=== PATIENT | female | born 1960 | race Caucasian/White ===

== ENCOUNTER → 2016-05-12 | Outpatient (CLI) | payer OTHER ==
--- NOTE | 2016-05-12 13:49 | MA ---
Screening Digital Mammogram With iCAD Analysis Clinical Indications: Routine screening. Technique: Standard cephalocaudal projections are obtained. Digital breast tomosynthesis was performe d in the MLO projection with reconstruction at 1.0 mm slice thickness and composite MLO views reconst ructed. This examination is processed by the iCAD computer aided detection system. Comparison: August 2013, March 2012, January 2011, November 2009, May 2007. Breast density: Type C: Heterogeneously dense. Findings: CAD was reviewed. No masses, suspicious calcifications or secondary signs of malignancy are seen. There has been no significant change in the appearance of either breast. Impression: Negative mammogram. BI-RADS 1. Recommendation: Routine mammographic screening in one year as long as physical examination is negativ e in this patient with heterogeneously dense breast parenchyma. [facility] will send a result letter to the patient. Negative mammography should not preclude additional workup of a clinically suspicious finding. The patient's information is entered into a reminder system with a target due date for her next mammo gram.
== END ==
LOC: FIMAGING 09:41
DX: Z12.31 Encounter for screening mammogram for malignant neoplasm of breast (principal)
CPT/HCPCS: G0202

== ENCOUNTER 2017-03-08 06:50 | Observation (INO) | payer OTHER ==
[2017-03-08] MEDS ORDERED: NS 1,000 ML IV ONE (07:09)
--- NOTE | 2017-03-08 07:37 | CPEKG ---
Heart Rate: 53 RR Interval: 1132 P-R Interval: 136 QRSD Interval: 82 QT Interval: 436 QTC Interval: 410 P Martin: 48 QRS Martin: 28 T Wave Martin: 19 EKG Severity - NORMAL ECG - EKG Impression: SINUS RHYTHM Electronically Signed By: Buzz Winchester 08-Mar-2017 11:10:19
[2017-03-08] MEDS ORDERED: LIDOCAINE 1% 300 MG/30 ML SDV ONE (07:39)
[2017-03-08] MEDS ORDERED: BUPIVACAINE 0.5% 30 ML SDV ONE (07:39)
[2017-03-08] MEDS ORDERED: HEPARIN 10,000 UNIT/10 ML MDV ONE (07:39)
[2017-03-08] MEDS ORDERED: ISOPROTERENOL HCL/D5W 0.2 MG/50 ML BAG IV ONE (07:40)
[2017-03-08 07:51] LABS: % IMMATURE GRANULYOCYTES 0.2 % (0.0-1.1); ABSOLUTE IMMATURE GRANULOCYTES 0.01 10^3/uL (0.00-0.10); ADD DIFF? NO; ADD MORPH? NO; ADD SCAN? NO; ATYPICAL LYMPHOCYTE FLAG 0 (0-99); FRAGMENT RBC FLAG 0 (0-99); HEMATOCRIT 39.2 % (38.0-47.0); HEMOGLOBIN 13.7 g/dL (12.6-16.3); LEFT SHIFT FLG 0 (0-99); LIPEMIA HEMOLYSIS FLAG 90 (0-99); MEAN CELL HEMOGLOBIN 30.9 pg (27.9-34.1); MEAN CELL HEMOGLOBIN CONCENTR. 34.9 g/dL (32.4-36.7); MEAN CELL VOLUME 88.5 fL (81.5-99.8); MEAN PLATELET VOLUME 9.9 fL (8.7-11.7); PLATELET CLUMPS FLAG 0 (0-99); PLATELET COUNT 198 10^3/uL (150-400); RED BLOOD CELL COUNT 4.43 10^6/uL (4.18-5.33); RED CELL DISTRIBUTION WIDTH 13.3 % (11.5-15.2)
[2017-03-08 08:02] LABS: ANION GAP 9 mEq/L (8-16); CALCIUM 9.2 mg/dL (8.5-10.4); CARBON DIOXIDE 27 mEq/l (22-31); CHLORIDE 105 mEq/L (97-110); CREATININE 0.7 mg/dL (0.6-1.0); GLOMERULAR FILTRATION RATE > 60; GLUCOSE 79 mg/dL (70-100); MAGNESIUM 2.2 mg/dL (1.6-2.3); POTASSIUM 3.7 mEq/L (3.5-5.2); SODIUM 141 mEq/L (134-144)
[2017-03-08 08:03] LABS: INR 0.94 (0.83-1.16); PROTIME(PATIENT) 12.5 SEC (12.0-15.0)
[2017-03-08 08:04] LABS: APTT 29.2 SEC (23.0-38.0)
--- NOTE | 2017-03-08 09:06 | PDGENHP ---
History & Physical Chief Complaint: svt History of Present Illness: SVT Relevant Physical Exam: S1S2 RRR. CTA. AO X 3 Cardiorespiratory Assessment: SVT, long RP tachycardia, for ablation
--- NOTE | 2017-03-08 09:17 | PDANEPAE ---
ANE History of Present Illness svt ANE Past Medical History - Pulmonary History Hx Oxygen in Use at Home: No Hx Sleep Apnea: No ANE Review of Systems Review of Systems: - Systems Immunologic/Allergy: Reports: food allergy ANE Patient History - Allergies Allergies/Adverse Reactions: CATS Allergy (Severe, Uncoded 06/16/10 18:22) EYES SWELL GLUTEN Allergy (Severe, Uncoded 06/16/10 18:22) ASTHMA, CELIAC SYMPTOMS OATS, WHEAT Allergy (Severe, Uncoded 06/16/10 18:22) ASTHMA, CELIAC SYMPTOMS - Home Medications Home Medications: Fluticasone Nasal [Flonase Nasal [place] (RX)] 1 sprays NASAL DAILY 03/01/17 [ Last Taken 03/07/17 08:00] Fluticasone/Salmeter 250/50Mcg [Advair 250/50 (*)] 1 puffs IH DAILY 03/01/17 [ Last Taken 03/07/17 08:00] Herbals/Supplements -Info Only 1 ea PO DAILY 03/01/17 [Last Taken 03/07/17 08:00 ] Levothyroxine [Synthroid 112 mcg (*)] 112 mcg PO DAILY06 03/01/17 [Last Taken 08:00] Multivitamins [Multivitamin (*)] 1 each PO DAILY 03/01/17 [Last Taken 03/07/17 08:00] azaTHIOprine [Imuran 50 mg (*)] 50 mg PO HS 03/01/17 [Last Taken 03/06/17 21:00] - Smoking Hx Smoking Status: Never smoked ANE Labs/Vital Signs - Labs Result Diagrams: 03/08/17 07:30 03/08/17 07:30 - Vital Signs Height: 165 cm Weight: 59 kg ANE Physical Exam - Airway Neck exam: FROM Mallampati Score: Class 1 Mouth exam: normal dental/mouth exam - Pulmonary Pulmonary: no respiratory distress - Cardiovascular Cardiovascular: regular rate and rhythym - ASA Status ASA Status: II ANE Anesthesia Plan Anesthesia Plan: general endotracheal anesthesia
[2017-03-08] MEDS ORDERED: PROPOFOL 200 MG/20 ML VIAL ONE ×2 (09:20→10:41)
[2017-03-08] MEDS ORDERED: ROCURONIUM 50 MG/5 ML VIAL ONE (09:20)
[2017-03-08] MEDS ORDERED: fentaNYL 100 MCG/2 ML INJ ONE ×3 (09:20→10:41)
[2017-03-08] MEDS ORDERED: DESFLURANE 240 ML BOTTLE IH ONE (09:31)
[2017-03-08 09:37] LABS: ALBUMIN 4.1 g/dL (3.5-5.0); BILIRUBIN,TOTAL 0.7 mg/dL (0.1-1.4); BILIRUBIN-CONJUGATED 0.2 mg/dL (0.0-0.5); BILIRUBIN-UNCONJUGATED 0.5 mg/dL (0.0-1.1); TOTAL PROTEIN 6.9 g/dL (6.3-8.2)
[2017-03-08] MEDS ORDERED: PROMETHAZINE HCL 25 MG/ML INJ IVP PRN (11:06)
[2017-03-08] MEDS ORDERED: fentaNYL 100 MCG/2 ML INJ IVP PRN (11:06)
[2017-03-08] MEDS ORDERED: NALOXONE HCL 0.4 MG/ML INJ IVP PRN (11:06)
[2017-03-08] MEDS ORDERED: ONDANSETRON 4 MG/2 ML VIAL IVP PRN ×2 (11:06→11:20)
[2017-03-08] MEDS ORDERED: HYDROmorphONE/DILAUDID 1 MG/ML INJ IVP PRN (11:06)
[2017-03-08] MEDS ORDERED: ACETAMINOPHEN 325 MG TAB PO PRN (11:20)
[2017-03-08] MEDS ORDERED: OXYCODONE/APAP 5/325 TAB PO PRN (11:20)
--- NOTE | 2017-03-08 11:20 | EPPROC ---
Electrophysiology Procedure Note: ELECTROPHYSIOLOGIC STUDY AND CATHETER MEDIATED ABLATION OF SLOW/FAST AV SANTY REENTRY TACHYCARDIA PROCEDURES PERFORMED: 93126-76 EP evaluation with RA/RV/LA pace/record, with arrhythmia induction 91391-92 EP evaluation with RA/RV pace record, insert/reposition catheter, with arrhythmia induction 68239 Intracardiac catheter ablation, SVT arrhythmogenic focus 50593 3D mapping Fluoroscopy INDICATION: SVT PROCEDURE: Catheters & Anesthesia: The patient arrived in the Electrophysiology Laboratory in the fasting state. The right clavicular region, right groin, and left groin area were prepped and draped in the usual sterile manner. Anesthesiologist Dr. Adria Medellin administered general anesthesia. Appropriate non-invasive blood pressure, pulse oximetry and end-tidal CO2 monitoring was established. All catheters were placed percutaneously using the modified Seldinger technique , and advanced into position under fluoroscopic guidance. One #6 Libyan hexapolar non-deflectable electrode catheter was inserted into the right atrial appendage via the left femoral vein (2mm spacing; except the proximal ring which was 25cm from the tip used for unipolar recordings). One #7 Libyan deflectable octapolar electrode catheter was advanced to the His-bundle position via the left femoral vein (2mm spacing). One #7 Libyan deflectable quadrapolar catheter was advanced to the anteroseptal right ventricle via the right femoral vein. One #7 Libyan deflectable catheter with 10 pairs of electrodes was placed via the right femoral vein into the coronary sinus. Heparin was given to keep ACT > 200 s. Programmed stimulation was performed from the right atrium, right ventricle and coronary sinus (left atrium). Parahisian pacing demonstrated constant H-A interval with changing V-A intervals and stimulus-A intervals during capture and loss of capture of proximal RBB proving retrograde conduction over AV node. AVNRT was induced easily during infusion of isoproterenol 1 mcg/min. Ventricular extrastimuli delivered during tachycardia without altering antegrade His bundle activation did not advance next atrial potential, indicating that the tachycardia was not utilizing an accessory pathway for retrograde conduction. VA interval was 20 ms. Post entrainment of the tachycardia from the ventricle, there was VAHV response. Mapping of the right atrium and coronary sinus during AVNRT identified earliest atrial activation above the tendon of Albert at a level slightly posterior to the level of the His bundle, consistent with retrograde conduction over the fast AV santy pathway. A #8 Libyan deflectable quadrapolar electrode catheter (2mm-5mm-2mm spacing) with 4 mm tip electrode and sensor for the 3D mapping Carto system was advanced to the right atrium. 3 D mapping of the inter-atrial septum and coronary sinus was performed and location of the AV node was marked. A SL2 sheath was used. RF applications were delivered to the region between the tricuspid annulus and the coronary sinus ostium, at the level of the upper edge of the coronary sinus ostium. Junctional rhythm occurred during all of the RF applications. Programmed stimulation was continued post ablation at baseline and during graded doses of isoproterenol upto 2mcg/min. Sustained AVNRT was not inducible. There were no echo beats. The catheters were removed. The long sheath was changed to a short 9 Fr sheath. The patient was transferred to the cardiovascular holding area in stable condition. Vascular access sheaths were removed in the holding area. There were no apparent complications. Results: A. Spontaneous Intervals: Pre ablation SCL 1100 ms AH 100 ms HV 40 ms Post ablation SCL 725 ms AH 55 ms HV 40 ms B. Antegrade AV santy function (decremental pacing) Pre ablation FPERP 610 ms SPERP 540 ms WBB CL 530 ms Post ablation FPERP 400 ms WBB CL 390 ms C. Retrograde AV santy function (decremental pacing) Pre ablation FPERP 550 ms WBB CL 540 ms D. Arrhythmias: Sustained slow/fast AVNRT Cycle length 370 ms, AH interval 320 ms, RAMAN interval 50 ms VA interval 20 ms CONCLUSIONS 1. 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 ( Slow/fast AVNRT). 2. Successful ablation of the slow AV santy pathway with elimination of 1:1 antegrade conduction over the slow AV santy pathway, all retrograde conduction over the slow AV santy pathway and the inducibility of AVNRT. 3. No complications. Patient Problems: Problems Problem Status Onset SVT (supraventricular tachycardia) Acute
--- NOTE | 2017-03-08 11:37 | POSTANESTH ---
Post Anesthetic Evaluation Cardiovascular Status: Normal, Stable Respiratory Status: Normal, Stable Level of Consciousness/Mental Status: Can Participate in Eval Pain Control: Adequate, Prn Tx Ordered Nausea/Vomiting Control: Adequate, Prn Tx Ordered Complications Possibly Related to Anesthesia: None Noted
[2017-03-08] MEDS ORDERED: ATROPINE SULFATE 1 MG/10 ML SYR ONE (11:43)
--- NOTE | 2017-03-08 12:25 | CPEKG ---
Heart Rate: 60 RR Interval: 1000 P-R Interval: 152 QRSD Interval: 86 QT Interval: 432 QTC Interval: 432 P [place]: 70 QRS [place]: 14 T Wave [place]: 22 EKG Severity - NORMAL ECG - EKG Impression: SINUS RHYTHM Electronically Signed By: Raza Juan 08-Mar-2017 15:48:52
[2017-03-08] MEDS ORDERED: FLU VACC QS 2017-18 (3YR+)/PF 0.5 ML SYR (FLUARIX QUAD) IM ONE (17:00)
[2017-03-08] MEDS ORDERED: PNEUMOCOCCAL 0.5ML VACCINE VIAL IM ONE (17:12)
[2017-03-08] MEDS: ENOXAPARIN 30 MG/0.3 ML SYR SC SCH (19:00)
[2017-03-08] MEDS ORDERED: azaTHIOprine 50 MG TAB PO SCH (21:00)
[2017-03-09 03:42] VITALS: O2SAT 94
[2017-03-09 05:24] LABS: % IMMATURE GRANULYOCYTES 0.3 % (0.0-1.1); ABSOLUTE IMMATURE GRANULOCYTES 0.02 10^3/uL (0.00-0.10); ADD DIFF? NO; ADD MORPH? NO; ADD SCAN? NO; ATYPICAL LYMPHOCYTE FLAG 0 (0-99); FRAGMENT RBC FLAG 0 (0-99); HEMATOCRIT 36.4 % (38.0-47.0); LEFT SHIFT FLG 0 (0-99); LIPEMIA HEMOLYSIS FLAG 80 (0-99); MEAN PLATELET VOLUME 10.5 fL (8.7-11.7); PLATELET CLUMPS FLAG 0 (0-99); PLATELET COUNT 162 10^3/uL (150-400); RED CELL DISTRIBUTION WIDTH 13.6 % (11.5-15.2)
[2017-03-09 05:33] LABS: INR 1.06 (0.83-1.16); PROTIME(PATIENT) 13.7 SEC (12.0-15.0)
[2017-03-09] MEDS ORDERED: LEVOTHYROXINE 112 MCG TAB PO SCH (06:00)
[2017-03-09 06:07] LABS: ANION GAP 9 mEq/L (8-16); CALCIUM 8.7 mg/dL (8.5-10.4); CARBON DIOXIDE 26 mEq/l (22-31); CHLORIDE 106 mEq/L (97-110); CREATININE 0.8 mg/dL (0.6-1.0); GLOMERULAR FILTRATION RATE > 60; GLUCOSE 74 mg/dL (70-100); SODIUM 141 mEq/L (134-144)
[2017-03-09 06:15] LABS: CREATINE KINASE-MB FRACTION 0.42 ng/mL (0.00-3.19)
[2017-03-09 07:08] VITALS: BP 109/61; PULSE 57; RESP 16; TEMP 98.3
[2017-03-09] MEDS: ENOXAPARIN 30 MG/0.3 ML SYR SC SCH (08:21)
--- NOTE | 2017-03-09 08:56 | CPEKG ---
Heart Rate: 60 RR Interval: 1000 P-R Interval: 136 QRSD Interval: 80 QT Interval: 396 QTC Interval: 396 P [place]: 56 QRS [place]: 46 T Wave [place]: 32 EKG Severity - NORMAL ECG - EKG Impression: SINUS RHYTHM Electronically Signed By: Raza Juan 09-Mar-2017 15:39:19
[2017-03-09] MEDS ORDERED: MULTIVITAMINS 1 EACH TAB PO SCH (09:00)
[2017-03-09] MEDS ORDERED: FLUTICASONE/SALMETER 250/50MCG DISKUS IH SCH (09:00)
[2017-03-09] MEDS ORDERED: FLUTICASONE NASAL 120 SPRAYS/16 GM MDI EACHNARE SCH (09:00)
--- NOTE | 2017-03-09 11:02 | ECHO ---
[email or web address] [address] [address] Main: [phone] Fax: Transthoracic Echocardiogram Name: MARIZA ARRIOLA MR#: [id number] Study Date: 03/09/2017 Study Time: 09:07 AM Date of : 1960 Age: 56 year(s) Height: 165.1 cm (65 in.) Weight: 58.97 kg (130 lb.) BSA: 1.65 m2 Gender: Female Examination: Echo Indication: F/U post EP study Image Quality: Contrast: Requested by: Buzz Winchester BP: 109 mmHg/61 mmHg Heart Rate: Rhythm: Indication: F/U post EP study Procedure Staff Associate Application Developer: Larisa Moulton Physician: Rodriguez Lee Requesting Provider: Conclusions: Normal study Measurements: Chambers Valvular Assessment AV/MV Valvular Assessment TV/PV Normal Normal Normal Name Value Range Name Value Range Name Value Range IVSd (2D): 0.8 cm (0.6 cm-1.1 AV meanP mmHg ( - ) TR Vmax: 2.05 mm/s ( - ) cm) MV E Vmax: 0.74 m/s ( - ) TR PGmax: 17 mmHg ( - ) LVDd (2D): 4.2 cm (3.9 cm-5.3 MV A Vmax: 0.31 m/s ( - ) syst. PAP: 22 mmHg ( - ) cm) MV E/A: 2.39 ( - ) LVDs (2D): 2.5 cm (2.1 cm-4 cm) LVPWd (2D): 0.8 cm ( - ) EF Range: 65-70 % Continued Measurements: Chambers Valvular Assessment AV/MV Valvular Assessment TV/PV Name Value Name Value Name Value LADs: 3.4 cm MV E' Septal: 0.10 m/s CVP (est.): 5 mmHg LADs Lon.2 cm MV E/E' Septal: 7.50 LA Area: 12.6 cm2 MV E/E' Lateral: 6.30 Findings: Left Ventricle: Normal size left ventricle. No LV hypertrophy. Normal global systolic LV function. The ejection fraction is estimated to be 65-70 %. No regional wall motion abnormality. Right Ventricle: Normal size right ventricle. Patient: MARIZA ARRIOLA Study Date: 03/09/2017 Page 1 of 2 09:07 AM Left Atrium: The left atrium is normal in size. Right Atrium: The right atrium is borderline dilated. Mitral Valve: The mitral valve is normal in appearance and function. Trivial mitral valve regurgitation. Aortic Valve: The aortic valve is normal in appearance and function. Tricuspid Valve: The tricuspid valve is normal in appearance and function. Mild tricuspid regurgitation is present. The pulmonary artery pressure is normal. Pulmonic Valve: The pulmonic valve is normal in appearance and function. Trivial pulmonic valve regurgitation. Aorta: The aorta is normal. Pericardium: No pericardial effusion. (No Signature Object) Patient: MARIZA ARRIOLA Study Date: 03/09/2017 Page 2 of 2 09:07 AM D:_[id number]
--- NOTE | 2017-03-09 12:02 | ASDISCHSUM ---
Discharge Information Plan Status:Home with No Needs Medically Cleared to Leave:03/08/2017 Discharge Date:03/09/2017 10:52 AM CM D/C Disposition:Home, Routine, Self-Care ADT D/C Disposition:Home, Routine, Self-Care Projected Discharge Date:03/09/2017 10:52 AM Transportation at D/C:Family Discharge Delay Reason: Follow-Up Date:03/09/2017 10:52 AM Discharge Slot: Final Diagnosis: Placement Information Patient Contact Information Contact Name:CHEKO Relationship:Other Address:[address] [place] [address] City:[facility] Phone: [facility]/Zip Code:[place] [address] Email: Financial Information Financial Class:[facility] Primary Plan Desc:[employer] OPEN ACC LOCAL Primary Plan Number:[id number] Secondary Plan Desc: Secondary Plan Number: Assessment Information LACE LACE Length of stay for Answers: 1 day current admission Acuity / Level of Care Answers: No. Emergency dept visits in Answers: 0 last 6 months Score: 1 Date Signed: 03/09/2017 12:01 PM Electronically Signed By:Jeana Alvarez RN Intervention Information
--- NOTE | 2017-03-10 01:22 | GDS ---
[f rep st] DISCHARGE SUMMARY DISCHARGE DIAGNOSES: 1. Supraventricular tachycardia. 2. Ablation of atrioventricular rina reentry tachycardia. BRIEF HISTORY: This is a 56-year-old woman with a history of autoimmune hepatitis, celiac disease, hypothyroidism who has been experiencing palpitations for the last 7 years. These are occasionally stopped with vagal maneuvers. AliveCor tracings demonstrated SVT at a rate of 135 beats per minute. She also has a history of syncope twice. 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 HOSPITAL COURSE: Dr. Winchester performed EP study that showed slow fast AVNRT that was easily inducible. He performed successful ablation of slow AV rina pathway with elimination of 1:1 antegrade conduction over slow AV rina pathway. There was no inducible AVNRT post ablation. Overnight she has done well. She denies any chest pain, pressure, tightness, or shortness of breath. She has mild tenderness at groin site but no bleeding. Telemetry has demonstrated sinus rhythm with occasional PVCs. TESTING DONE: Echocardiogram demonstrates ejection fraction of 65% with no wall motion abnormalities and no pericardial effusion. EKG demonstrates sinus rhythm without acute ST-T wave changes. LAB WORK: WBC is 6.63, hemoglobin 12, hematocrit 36.4, platelets 162. PT is 13.7, INR is 1.06. Sodium 141, potassium 4.0, chloride 106, bicarb 26, BUN 17, creatinine 0.8, glucose 74, CK 39, CK-MB 0.42. Troponin 0.020. On March 08 lab work done included TSH 0.869, free T4 1.28, free T3 2.86. AST 38, ALT 37, alk phos 57. PHYSICAL EXAM: VITAL SIGNS: Blood pressure is 109/61, pulse is 57, respirations 16, temperature 36.8, O2 saturation on room air is 94%. GENERAL: She is alert and oriented, sitting up in her bed, in no acute distress. CARDIAC : Regular rate and rhythm without murmur, rub, or gallop. LUNGS: Clear to auscultation. ABDOMEN: Soft, nontender. Groin sites are without bleeding or hematoma. EXTREMITIES: Lower extremities are warm. No discoloration. Bilateral +1 pedal pulses. DISCHARGE INSTRUCTIONS: Post ablation activity restrictions were reviewed with the patient verbally and she received written instructions also. Of note, she is flying back to [facility] next Wednesday. She will receive a Lovenox dose of 30 mg SQ prior to leaving on her flight to decrease risk of blood clot. DISCHARGE MEDICATIONS: Please see discharge medication reconciliation. She will take 81 mg of aspirin daily for 6 weeks post ablation. FOLLOWUP: She has a followup scheduled at [facility] on March 16 at 10 o 'clock in the morning. She will have an EKG and a groin check as well as receive her Lovenox injection. A prescription for Lovenox was sent to [facility] and she will bring that with her to the office visit. /[id number]/MODL MTDD
== END 2017-03-09 10:52 | disposition home or self-care (01) ==
LOC: FSGY 06:50 → F2W 11:21 → UNDOADMOB 11:21 → F2W 14:00
PROVIDERS: ADMIT Internal Medicine Cardiovascular Disease; ATTEND Internal Medicine Cardiovascular Disease
DX: I47.1 Supraventricular tachycardia (principal); K75.4 Autoimmune hepatitis; K90.0 Celiac disease; E03.9 Hypothyroidism, unspecified; Z23 Encounter for immunization
CPT/HCPCS: 90471; 93005; 93306; 93613; 93621; 93623; 93653; C1730; C1732; G0378; 84481-90; C1731; C1893; G0008; G0009; J0461; J1644; J1650; J2704; J3010; J7500

== ENCOUNTER → 2017-10-06 | Outpatient (CLI) | payer OTHER | LOC: FIMAGING 11:40 | PROVIDERS: ATTEND Internal Medicine | DX: Z12.31 Encounter for screening mammogram for malignant neoplasm of breast (principal) ==